=== PATIENT | female | born 1935 | race Caucasian/White ===

== ENCOUNTER → 2018-04-08 13:01 | Outpatient (REF) | payer MEDICARE, OTHER, SELFPAY ==
[2018-04-08 18:42] LABS: HCT 37.5 % (36.0-46.0); HGB 11.8 g/dL (12.0-15.5); Mean Corp. HGB Concentration 31.5 g/dL (32.0-36.0); Mean Corpuscular Hemoglobin 29.2 pg (27.0-33.0); Mean Corpuscular Volume 92.8 fL (80-95); Mean Platelet Volume 9.7 fL (8.0-11.0); Platelet Count 579 x1000/uL (130-400); RBC 4.04 m/cumm (4.00-5.20); RBC Distribution Width 14.5 % (11.7-14.6); White Blood Cell Count 18.42 k/cumm (4.4-10.8)
[2018-04-08 18:48] LABS: Anion Gap 13.2 mmol/L (3-11); BUN 33 mg/dL (7-18); CO2 22.8 mmol/L (21.0-32.0); CREATININE 1.53 mg/dL (0.55-1.02); Calcium 9.2 mg/dL (8.5-10.1); Chloride 104 mmol/L (98-107); Estimated GFR 32.49 (mL/min/1.73m2); Glucose 127 mg/dL (70-100); NT-proBNP 3841 pg/mL; Sodium 140 mmol/L (136-145)
== END ==
LOC: NCHCN 13:01
PROVIDERS: PCP Family Medicine; Visit Provider Nurse Practitioner
DX: R06.02 Shortness of breath (principal)
CPT/HCPCS: 80048; 85027; 83880

== ENCOUNTER → 2018-04-16 10:56 | Outpatient (REF) | payer MEDICARE, OTHER, SELFPAY ==
[2018-04-16 11:28] LABS: Bilirubin Negative (Negative); Blood Negative (Negative); Clarity Sl Cloudy; Glucose Negative (Negative); Ketones Negative (Negative); Leukocyte Esterase Negative (Negative); Nitrite Negative (Negative); Specific Gravity 1.015 (1.005-1.025); Urobilinogen 0.2 EU/dL (Up TO 0.2); pH 5.5 (5-8)
== END ==
LOC: NCHCN 10:56
PROVIDERS: PCP Family Medicine; Visit Provider Family Medicine
DX: R35.0 Frequency of micturition (principal)
CPT/HCPCS: 81003

== ENCOUNTER 2018-05-20 09:31 | Outpatient (REF) | payer MEDICARE, OTHER, SELFPAY ==
[2018-05-20 12:11] LABS: HCT 37.9 % (36.0-46.0); HGB 11.8 g/dL (12.0-15.5); Mean Corp. HGB Concentration 31.1 g/dL (32.0-36.0); Mean Corpuscular Hemoglobin 30.2 pg (27.0-33.0); Mean Corpuscular Volume 96.9 fL (80-95); Mean Platelet Volume 10.2 fL (8.0-11.0); Platelet Count 356 x1000/uL (130-400); RBC 3.91 m/cumm (4.00-5.20); RBC Distribution Width 15.1 % (11.7-14.6); White Blood Cell Count 8.91 k/cumm (4.4-10.8)
[2018-05-20 12:16] LABS: Iron 87 ug/dL (50-175); Total Iron Binding Capacity 296 ug/dL (250-450); Transferrin Sat 29 % (15-50)
[2018-05-20 12:30] LABS: Anion Gap 9.1 mmol/L (3-11); BUN 27 mg/dL (7-18); CO2 25.9 mmol/L (21.0-32.0); CREATININE 1.37 mg/dL (0.55-1.02); Calcium 8.9 mg/dL (8.5-10.1); Chloride 107 mmol/L (98-107); Estimated GFR 36.91 (mL/min/1.73m2); Ferritin 287 ng/mL (8-388); Glucose 106 mg/dL (70-100); Sodium 142 mmol/L (136-145)
[2018-05-20 12:40] LABS: Vitamin D 25 Total 41.8 ng/ml (30-100)
[2018-05-21 13:17] LABS: Parathyroid Hormone,Intact 37 pg/ml (19-88)
[2018-05-28 12:22] LABS: Cystatin C, S 2.15 mg/L; eGFR by Cystatin C 24 mL/min/BSA (>60)
== END 2018-05-20 09:51 ==
LOC: NCHCN 09:31
PROVIDERS: PCP Family Medicine; Visit Provider Family Medicine
DX: N18.4 Chronic kidney disease, stage 4 (severe) (principal); F03.90 Unspecified dementia, unspecified severity, without behavioral disturbance, psychotic disturbance, mood disturbance, and anxiety; D63.1 Anemia in chronic kidney disease
CPT/HCPCS: 80048; 82306; 82610; 85027; 82728; 83540; 83550; 83970

== ENCOUNTER 2018-11-23 07:56 | Outpatient (CLI) | payer MEDICARE, OTHER, SELFPAY ==
[2018-11-23 08:34] LABS: HCT 35.5 % (36.0-46.0); HGB 11.3 g/dL (12.0-15.5); Mean Corp. HGB Concentration 31.8 g/dL (32.0-36.0); Mean Corpuscular Hemoglobin 30.1 pg (27.0-33.0); Mean Corpuscular Volume 94.4 fL (80-95); Mean Platelet Volume 9.6 fL (8.0-11.0); Platelet Count 333 x1000/uL (130-400); RBC 3.76 m/cumm (4.00-5.20); White Blood Cell Count 9.81 k/cumm (4.4-10.8)
[2018-11-23 10:13] LABS: Anion Gap 9.5 mmol/L (3-11); BUN 37 mg/dL (7-18); CO2 24.5 mmol/L (21.0-32.0); CREATININE 1.42 mg/dL (0.55-1.02); Calcium 9.1 mg/dL (8.5-10.1); Chloride 107 mmol/L (98-107); Estimated GFR 35.33 (mL/min/1.73m2); Ferritin 122 ng/mL (8-388); Glucose 119 mg/dL (70-100); Potassium 4.9 mmol/L (3.5-5.1); Sodium 141 mmol/L (136-145); TSH (W/Ref FT4) 1.37 uIU/mL (0.358-3.74)
[2018-11-24 12:29] LABS: Parathyroid Hormone,Intact 61 pg/ml (19-88)
== END 2018-11-23 08:16 ==
PROVIDERS: PCP Family Medicine; Visit Provider Family Medicine
DX: E87.5 Hyperkalemia (principal); I10 Essential (primary) hypertension; N18.3 Chronic kidney disease, stage 3 (moderate); D63.1 Anemia in chronic kidney disease
CPT/HCPCS: 36415; 80048; 85027; 82728; 83970; 84443

== ENCOUNTER 2019-02-14 15:16 | Outpatient (REF) | payer MEDICARE, OTHER, SELFPAY ==
--- NOTE | 2019-02-14 13:28 | SKI_PTH ---
PATIENT: Barbie Hughes LOC: N U#:[id number] AGE/SX: 83/F ROOM: RE02/14/[address]: Kelton Villalobos DO : 1935 BED: DIS: 02/14/2019 SPEC #: [id number] RECD: 02/14/19 18:31 STATUS: OPAL REQ #: [id number] JULIAN: 02/14/19 13:[address]: Kelton Villalobos DEPT: Surgical Specimen RECD BY: Lisa Granados ENTERED: 02/14/19 18:32 SP TYPE: SAMEER GÓMEZ DR: Tana Brunner Tissues: 1 - SKIN BIOPSY(SHAVE/PUNCH) Procedures: SKIN LEVEL 4 Comments: [id number]
== END 2019-02-14 15:36 ==
LOC: LBN 15:16
PROVIDERS: PCP Family Medicine; Visit Provider Otolaryngology Otolaryngology/Facial Plastic Surgery
DX: C44.311 Basal cell carcinoma of skin of nose (principal)
CPT/HCPCS: 88305

== ENCOUNTER 2019-03-09 15:22 | Outpatient (REF) | payer MEDICARE, OTHER, SELFPAY ==
[2019-03-09 16:09] LABS: Bilirubin Negative (Negative); Blood Trace-intact (Negative); Clarity Sl Cloudy (Clear); Glucose Negative (Negative); Ketones Negative (Negative); Leukocyte Esterase Moderate (Negative); Nitrite Positive (Negative); Urobilinogen 0.2 EU/dL (Up TO 0.2)
[2019-03-09 19:00] LABS: WBC >50 HPF (0-5)
[2019-03-09 19:01] LABS: Bacteria Many HPF (Negative); C & S Indicated? C&S Done As Ordered; Casts Negative LPF (Negative); Crystals Negative HPF (Negative); Epithelial Cells Negative HPF (Negative); Mucus Negative (Negative); Other Cells Negative (Negative)
[2019-03-09 20:14] LABS: Anion Gap 10.7 mmol/L (3-11); BUN 29 mg/dL (7-18); CO2 20.3 mmol/L (21.0-32.0); CREATININE 1.54 mg/dL (0.55-1.02); Calcium 7.9 mg/dL (8.5-10.1); Chloride 102 mmol/L (98-107); Estimated GFR 32.17 (mL/min/1.73m2); Glucose 132 mg/dL (70-100); Potassium 4.6 mmol/L (3.5-5.1); Sodium 133 mmol/L (136-145)
== END 2019-03-09 15:42 ==
LOC: NCHCN 15:22
PROVIDERS: PCP Family Medicine; Visit Provider Family Medicine
DX: N39.0 Urinary tract infection, site not specified (principal); R50.9 Fever, unspecified; N18.3 Chronic kidney disease, stage 3 (moderate); D50.9 Iron deficiency anemia, unspecified
CPT/HCPCS: 80048; 87077; 81003; 81015; 87086; 87186

== ENCOUNTER 2019-08-04 00:34 | Outpatient (CLI) | payer MEDICARE, OTHER, SELFPAY ==
--- NOTE | 2019-08-04 15:33 | DI.DEXA_ITS ---
EXAM: XR DEXA BONE DENSITY W/WO UZMA INDICATION: OSTEOPOROSIS M81.0. COMPARISON: Two thousand thirteen. FINDINGS: The UZMA image shows no evidence of compression fracture. The bone mineral density measurements of t he lumbar spine correspond to a total T-score of -2.7, in the osteoporotic range. This is a 4.0 perc ent increase when compared with 2012. The bone mineral density measurements of the right hip correspond to a total T-score of -3.5 and a fe moral neck T-score of -2.9, in the osteoporotic range. This is a 4.1 percent decrease when compared with 2013. Bone mineral density measurements of the left forearm correspond to a total T-score and a T-score of the distal 3rd of -4.8, in the osteoporotic range. This is a 12.6 percent decrease when compared wit 2012. IMPRESSION: Osteoporosis of the lumbar spine, right hip and left forearm.
== END 2019-08-04 00:54 ==
PROVIDERS: PCP Family Medicine; Visit Provider Family Medicine
DX: M81.0 Age-related osteoporosis without current pathological fracture (principal)
CPT/HCPCS: 77080

== ENCOUNTER 2019-09-29 01:26 | Outpatient (CLI) | payer MEDICARE, OTHER, SELFPAY ==
--- NOTE | 2019-09-29 07:49 | DI.MAMMO_ITS ---
EXAM: MAMMO SCREENING CLINICAL HISTORY: SCREENING,Z12.31 TECHNIQUE: Mammograms were interpreted according to the usual protocol including computer analysis w [employer] CAD system, tomosynthesis and C-view imaging. FINDINGS: The breasts are heterogeneously dense. No dominant mass or clumped microcalcification. Comparison wi th previous examination of June 2017 shows no gross interval change in appearance since that time . IMPRESSION: No specific evidence of malignancy at this time. Routine screening examinations are suggested at year ly intervals due to family history of breast carcinoma. Category 1. Breast density, Category C. BI-RADS Cat 1 - Negative. Breast Density - Category C - Heterogeneously dense.
== END 2019-09-29 01:46 ==
PROVIDERS: PCP Family Medicine; Visit Provider Family Medicine
DX: Z12.31 Encounter for screening mammogram for malignant neoplasm of breast (principal); Z80.3 Family history of malignant neoplasm of breast
CPT/HCPCS: 77063; 77067

== ENCOUNTER 2019-11-17 07:53 | Outpatient (REF) | payer MEDICARE, OTHER, SELFPAY ==
[2019-11-17 19:20] LABS: Abs Immature Grans 0.03 k/cumm (0.0-0.09); Absolute Basophil Count 0.11 k/cumm (0.0-0.2); Absolute Eosinophil Count 0.69 k/cumm (0.0-0.7); Absolute Monocyte Count 0.73 k/cumm (0.11-0.7); Absolute Neutrophil Count 6.29 k/cumm (1.2-6.7); Basophils % 1.2; Eosinophils % 7.4; HCT 39.6 % (36.0-46.0); HGB 12.5 g/dL (12.0-15.5); Immature Grans % 0.3 %; Mean Corp. HGB Concentration 31.6 g/dL (32.0-36.0); Mean Corpuscular Volume 91.9 fL (80-95); Mean Platelet Volume 10.1 fL (8.0-11.0); Monocytes % 7.8; Neutrophils % 67.3; Platelet Count 403 x1000/uL (130-400); RBC 4.31 m/cumm (4.00-5.20); RBC Distribution Width 15.3 % (11.7-14.6); White Blood Cell Count 9.35 k/cumm (4.4-10.8)
[2019-11-17 20:28] LABS: Hemoglobin A1C 6.3 % (3.8-5.6)
[2019-11-17 20:31] LABS: BUN 30 mg/dL (7-18); CREATININE 1.72 mg/dL (0.55-1.02); Calcium 8.7 mg/dL (8.5-10.1); Chloride 104 mmol/L (98-107); Estimated GFR 28.32 (mL/min/1.73m2); Ferritin 68 ng/mL (8-252); Glucose 114 mg/dL (74-106); Sodium 140 mmol/L (136-145); TSH (W/Ref FT4) 88.09 uIU/mL (0.36-3.74)
[2019-11-17 21:49] LABS: FREE T4 0.64 ng/dL (0.76-1.46)
[2019-11-21 06:06] LABS: Vitamin D 25 Total 45.3 ng/ml (30-100)
== END 2019-11-17 08:13 ==
LOC: NCHCN 07:53
PROVIDERS: PCP Family Medicine; Visit Provider Family Medicine
DX: D50.9 Iron deficiency anemia, unspecified (principal); E03.9 Hypothyroidism, unspecified; R73.9 Hyperglycemia, unspecified; I25.10 Atherosclerotic heart disease of native coronary artery without angina pectoris; N18.3 Chronic kidney disease, stage 3 (moderate)
CPT/HCPCS: 80048; 82306; 82728; 83036; 84439; 84443; 85025

== ENCOUNTER 2020-05-23 14:59 | Outpatient (REF) | payer MEDICARE, OTHER, SELFPAY ==
[2020-05-23 19:25] LABS: HCT 37.3 % (36.0-46.0); HGB 11.6 g/dL (11.2-15.7); MCH 28.7 pg (27.0-33.0); MCHC 31.1 % (32.0-36.0); MCV 92.3 fL (80-95); MPV 10.2 fL (8.0-11.0); Platelet Count 358 10^3/uL (130-400); RBC 4.04 10^6/uL (3.93-5.22); RDW 13.9 % (11.7-14.6); RDW-SD 47.3 fL; WBC 8.08 10^3/uL (4.4-10.8)
[2020-05-23 19:55] LABS: Anion Gap 7.1 mmol/L (3-11); BUN 23 mg/dL (7-18); CO2 26.9 mmol/L (21.0-32.0); CREATININE 1.55 mg/dL (0.55-1.02); Calcium 8.2 mg/dL (8.5-10.1); Chloride 108 mmol/L (98-107); Estimated GFR 31.85 (mL/min/1.73m2); Ferritin 60 ng/mL (8-252); Glucose 140 mg/dL (74-106); Potassium 4.6 mmol/L (3.5-5.1); Sodium 142 mmol/L (136-145)
[2020-05-23 20:12] LABS: Iron 22 ug/dL (50-170); Total Iron Binding Capacity 309 ug/dL (250-450); Transferrin Sat 7 % (15-50)
[2020-05-23 20:13] LABS: PHOSPHORUS 4.1 mg/dL (2.6-4.7)
[2020-05-23 20:43] LABS: Hemoglobin A1C 5.9 % (<5.7)
[2020-05-24 04:59] LABS: Vitamin D 25 Total 49.4 ng/ml (30-100)
[2020-05-25 09:16] LABS: Parathyroid Hormone,Intact 139 pg/mL (19-88)
== END 2020-05-23 15:19 ==
LOC: NCHCN 14:59
PROVIDERS: PCP Family Medicine; Visit Provider Family Medicine
DX: D50.9 Iron deficiency anemia, unspecified (principal); I10 Essential (primary) hypertension; R73.03 Prediabetes; I25.10 Atherosclerotic heart disease of native coronary artery without angina pectoris; E03.9 Hypothyroidism, unspecified; M81.0 Age-related osteoporosis without current pathological fracture
CPT/HCPCS: 80048; 82306; 85027; 82728; 83036; 83540; 83550; 83970; 84100; 84443

== ENCOUNTER 2020-06-11 03:27 | Outpatient (CLI) | payer MEDICARE, OTHER, SELFPAY ==
[2020-06-11 17:10] LABS: Abs Immature Grans 0.05 10^3/uL (0.0-0.06); Absolute Basophil Count 0.12 10^3/uL (0.0-0.2); Absolute Eosinophil Count 0.28 10^3/uL (0.0-0.7); Absolute Lymphocyte Count 1.45 10^3/uL (1.2-3.4); Absolute Monocyte Count 0.55 10^3/uL (0.1-0.8); Absolute Neutrophil Count 7.31 10^3/uL (1.2-6.7); Basophils % 1.2; Eosinophils % 2.9; HCT 40.5 % (36.0-46.0); HGB 12.6 g/dL (11.2-15.7); Immature Grans % 0.5; Lymphocytes % 14.9; MCH 28.6 pg (27.0-33.0); MCHC 31.1 % (32.0-36.0); MCV 91.8 fL (80-95); MPV 10.1 fL (8.0-11.0); Monocytes % 5.6; Neutrophils % 74.9; Nucleated RBC 0 %; Platelet Count 355 10^3/uL (130-400); RBC 4.41 10^6/uL (3.93-5.22); RDW 13.8 % (11.7-14.6); RDW-SD 46.7 fL; WBC 9.76 10^3/uL (4.4-10.8)
[2020-06-11 18:03] LABS: Anion Gap 9.8 mmol/L (3-11); BUN 33 mg/dL (7-18); CO2 28.2 mmol/L (21.0-32.0); CREATININE 1.73 mg/dL (0.55-1.02); Calcium 8.9 mg/dL (8.5-10.1); Chloride 104 mmol/L (98-107); Estimated GFR 28.06 (mL/min/1.73m2); Ferritin 74 ng/mL (8-252); Glucose 186 mg/dL (74-106); Potassium 4.5 mmol/L (3.5-5.1); Sodium 142 mmol/L (136-145); TSH (W/Ref FT4) 0.72 uIU/mL (0.36-3.74)
[2020-06-11 18:36] LABS: Hemoglobin A1C 6.1 % (<5.7)
[2020-06-11 18:45] LABS: Vitamin D 25 Total 50.3 ng/ml (30-100)
== END 2020-06-11 03:47 ==
PROVIDERS: PCP Family Medicine; Visit Provider Family Medicine
DX: D50.9 Iron deficiency anemia, unspecified (principal); E03.9 Hypothyroidism, unspecified; I25.10 Atherosclerotic heart disease of native coronary artery without angina pectoris; N18.30 Chronic kidney disease, stage 3 unspecified; R73.9 Hyperglycemia, unspecified; M85.88 Other specified disorders of bone density and structure, other site
CPT/HCPCS: 36415; 80048; 82306; 82728; 83036; 84443; 85025

== ENCOUNTER 2020-07-03 01:33 | Outpatient (RCR) | payer MEDICARE, OTHER, SELFPAY ==
[2020-07-03] MEDS: Denosumab 60 MG/ML SYR SC (07:11)
== END 2020-07-23 23:59 | disposition home or self-care (01) ==
LOC: INF 01:33
PROVIDERS: PCP Family Medicine; Visit Provider Family Medicine
DX: M81.0 Age-related osteoporosis without current pathological fracture (principal)
CPT/HCPCS: 96372; J0897